=== PATIENT | female | born 1970 | race Caucasian/White ===

== ENCOUNTER 2024-10-28 08:12 | Outpatient (AMB) | payer BC, SELFPAY ==
[2024-10-28 08:21] VITALS: BP 141/102; PULSE 74; RESP 19; TEMP 36.6; O2SAT 99; BMI 23.8
--- NOTE | 2024-10-28 08:21 | ORTHONT_ITS ---
Vital signs 10/28/24 08:21 Height 1.6 m Height Method Stated Weight 61.008 kg Weight Measurement Method Standing Scale BMI 23.8 BP 141/102 H Blood Pressure Source Automatic Cuff Blood Pressure Location Left Upper Arm Position Sitting Respiration 19 Pulse 74 Pulse Source Monitor Temp 97.8 F Temp Source Temporal Artery Scan Pulse Oximetry (%) 99 Oxygen Delivery Method Room Air Med/Allergies Allergies & Medications Allergies No Known Allergies Allergy (Verified 10/28/24 08:23) Medication Reconciliation Unobtainable 10/28/24 [History Confirmed 10/28/24] Exam Exam Patient is in no acute distress and is cooperative with the examination today. Breathing is nonlabored. In no respiratory distress. Patient has no paraspinal tenderness. Spinal deformity cannot be appreciated. The gait of the patient is nonantalgic Bilateral extremities were evaluated and demonstrates sensation intact to light touch. Palpable pedal pulses are present. No significant edema is present. Bilateral knees were examined and the patient has full strength and range of motion.. The right hip was examined. Patient was able to flex to 90 degrees, adduct to 30 degrees, abduct to 40 degrees, internally rotate to 20 degrees, and externally rotate to 20 degrees. Patient has a negative logroll. Stinchfield is negative. The patient is nontender diffusely to touch. The left hip was examined. Patient was able to flex to 90 degrees, adduct to 30 degrees, abduct to 40 degrees, internally rotate to 20 degrees, and externally rotate to 20 degrees. Patient has a positive logroll and positive Stinchfield MRI of the left hip was reviewed by me today. This demonstrates a labral tear as well as arthritis. Left hip x-rays demonstrate severe arthritis with complete obliteration of this. Inferior joint space Assessment and Plan Problem List (1) Arthritis of left hip: Status: Acute Plan: Patient is a 54-year-old female with a left hip pain and left hip arthritis Based on x-rays. We thus discussed total hip with a reasonable option and she is tried home exercises, physical therapy, anti-inflammatories The nature and purpose of the total hip replacement, alternative method(s) of treatment, the material risks involved, and the possibility of complications were fully explained to the patient. The patient does NOT have any of the following contraindications to GLENIS: - Active infection of the hip joint, OR - Active systemic bacteremia, OR - Active skin infection or open wound at surgical site, OR - Neuropathic arthritis, OR - Severe, rapidly progressive neurological disease, OR - Severe medical condition that makes risks of the surgery outweigh the potential benefit The patient was told the most common risks and complications associated with a total hip replacement include, but are not limited to: blood clots in the leg, fatal pulmonary embolism, dislocation of the prosthesis, intraoperative and postoperative fractures of the femur or acetabulum, infection, failure of the prosthesis or grafting materials, complications from anesthesia, reactions to blood transfusions, postoperative leg length inequality, instability of the hip replacement, nerve damage or injury, vascular injury, delayed wound healing, infection, other injury or even . In addition, there are risks associated with anesthesia given during this operation. Also, the patient was told that af ter undergoing a total hip replacement there may still be persistent pain or disability. The patient was informed that the success of this operation in part depends upon the mechanical devices which are going to be implanted and that these devices can fail or malfunction, and may need to be repaired or replaced and there are no guarantees as to the longevity of this device or its parts and that it or its parts could fail prematurely. The patient was also notified that during the course of surgery, there may be a need to use bone graft from donors, and that any bone graft used will be carefully screened for communicable diseases, including AIDS, hepatitis, Anurag-Creutzfeldt, or other diseases, but despite the screening procedures, there is a small chance that they could contract one of these diseases. Finally, the patient was asked to follow completely and fully with all advice and recommended treatments, and that recovery and ultimate outcome are affected by their compliance with recommended treatment. We discussed the risks, benefits and treatment alternatives, and the patient is interested in proceeding with surgery. We will try to set this up as expeditiously as possible. 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 Level 4 ([id number]) [place] Intake Visit Data Collection New Patient or Established: New Patient (never been to [facility]) Reason for Visit:: OSTEOARTHRITIS LEFT HIP Seen by Clinical Staff ONLY (RN/MA): No Applications Systems Analyst Required: No PCP or OBGYN visit in last 3 months: Yes Hx Now: No Do You Feel Safe at Home: Yes Authorities Contacted: N/A Questionairres Past Medical History Past Medical History Have you ever been diagnosed with any of the following: Surgical History Total Knee Replacement: Yes (RIGHT 2012) Subjective Visit Visit for: new patient and hip (LEFT) Immunization / Flu Flu Vaccine in the Last 12 Months: No Flu Vaccine Exclusion Criteria: Refused by Patient History of Present Illness Chief complaint: Left hip pain Date of injury / onset of symptoms: 09/2022 Melissa is a pleasant 54-year-old female with a left greater than right hip pain. This pain has been ongoing for several years. It is primarily located in the groin but does radiate to the buttocks and down her leg. She was Told she has mkwi-ri-[id number] arthritis and this is based on MRI. Pain Pain level (0-10): 6 Pain duration: ON AND OFF Pain location: groin Pain quality: aching Pain timing: increases with activity Associated signs & symptoms: none Ambulatory data Ambulatory device: none Treatments Number of previous injections: 1 Improvement with previous injections: No Improvement with PT: No Improvement with NSAIDS: no Review of Systems Review of Systems: All systems negative unless otherwise noted in HPI.
== END 2024-10-28 08:43 | disposition home or self-care (01) ==
PROVIDERS: PCP Family Medicine; Referring Provider Family Medicine; Supervising Provider Orthopaedic Surgery Adult Reconstructive Orthopaedic Surgery; Visit Provider Orthopaedic Surgery Adult Reconstructive Orthopaedic Surgery
DX: M16.12 Unilateral primary osteoarthritis, left hip (principal); M25.552 Pain in left hip
CPT/HCPCS: 99204; G0463

== ENCOUNTER → 2024-10-28 | Outpatient (CLI) | payer BC, SELFPAY ==
--- NOTE | 2024-10-28 10:45 | XR_ITS ---
Examination: Bilateral hips, AP pelvis, 5 views Technique: AP, lateral views both hips, AP pelvis, 5 views Exam date and time: October 28, 2024 1058 hours INDICATIONS: Left hip pain 7 years. FINDINGS: Advanced left hip osteoarthritis Moderate right hip osteoarthritis No hip or pelvic fracture IMPRESSION: Advanced left hip osteoarthritis
--- NOTE | 2024-10-28 10:45 | XR_ITS ---
Examination: Right knee 4 views TECHNIQUE: AP oblique lateral axial right knee 4 views Exam date and time: October 28, 2024 1104 hours INDICATIONS: Right knee arthroplasty 2012 FINDINGS: Total right knee arthroplasty. Satisfactory alignment No fracture Moderate osteopenia IMPRESSION: Total right knee arthroplasty with satisfactory alignment
== END | disposition home or self-care (01) ==
PROVIDERS: Referring Provider Orthopaedic Surgery Adult Reconstructive Orthopaedic Surgery; Visit Provider Orthopaedic Surgery Adult Reconstructive Orthopaedic Surgery
DX: M16.0 Bilateral primary osteoarthritis of hip (principal); M17.11 Unilateral primary osteoarthritis, right knee
CPT/HCPCS: 73523; 73564

== ENCOUNTER 2024-11-04 11:22 | Outpatient (AMB) | payer BC, SELFPAY ==
--- NOTE | 2024-11-04 11:26 | ORTHONT_ITS ---
Vital signs 11/04/24 11:27 Height 1.6 m Height Method Stated Weight 62.851 kg Weight Measurement Method Standing Scale BMI 24.5 BP 117/78 Blood Pressure Source Automatic Cuff Blood Pressure Location Left Upper Arm Position Sitting Respiration 18 Pulse 61 Pulse Source Monitor Temp 97.2 F Temp Source Temporal Artery Scan Pulse Oximetry (%) 96 Oxygen Delivery Method Room Air Med/Allergies Allergies & Medications Allergies No Known Allergies Allergy (Verified 11/04/24 11:28) Medication Reconciliation Unobtainable 10/28/24 [History Confirmed 11/04/24] Exam Exam Patient is in no acute distress and is cooperative with the examination today. Breathing is nonlabored. In no respiratory distress. Patient has no paraspinal tenderness. Spinal deformity cannot be appreciated. The gait of the patient is nonantalgic Bilateral extremities were evaluated and demonstrates sensation intact to light touch. Palpable pedal pulses are present. No significant edema is present. Bilateral knees were examined and the patient has full strength and range of motion.. The right hip was examined. Patient was able to flex to 90 degrees, adduct to 30 degrees, abduct to 40 degrees, internally rotate to 20 degrees, and externally rotate to 20 degrees. Patient has a negative logroll. Stinchfield is negative. The patient is nontender diffusely to touch. The left hip was examined. Patient was able to flex to 90 degrees, adduct to 30 degrees, abduct to 40 degrees, internally rotate to 20 degrees, and externally rotate to 20 degrees. Patient has a positive logroll and positive Stinchfield MRI of the left hip was reviewed by me today. This demonstrates a labral tear as well as arthritis. Left hip x-rays demonstrate severe arthritis with complete obliteration of this. Assessment and Plan Problem List (1) Arthritis of left hip: Status: Acute Plan: Patient is a 54-year-old female with a left hip pain and left hip arthritis. She has significant left hip arthritis of the x-rays. The right hip has moderate arthritis. We Thus discussed the left total hip replacement is a reasonable option. She would like to do this in the anterior approach and we will use a standard incision not her bikini incision. The nature and purpose of the total hip replacement, alternative method(s) of treatment, the material risks involved, and the possibility of complications were fully explained to the patient. The patient does NOT have any of the following contraindications to GLENIS: - Active infection of the hip joint, OR - Active systemic bacteremia, OR - Active skin infection or open wound at surgical site, OR - Neuropathic arthritis, OR - Severe, rapidly progressive neurological disease, OR - Severe medical condition that makes risks of the surgery outweigh the potential benefit The patient was told the most common risks and complications associated with a total hip replacement include, but are not limited to: blood clots in the leg, fatal pulmonary embolism, dislocation of the prosthesis, intraoperative and postoperative fractures of the femur or acetabulum, infection, failure of the prosthesis or grafting materials, complications from anesthesia, reactions to b lood transfusions, postoperative leg length inequality, instability of the hip replacement, nerve damage or injury, vascular injury, delayed wound healing, infection, other injury or even . In addition, there are risks associated with anesthesia given during this operation. Also, the patient was told that after undergoing a total hip replacement there may still be persistent pain or disability. The patient was informed that the success of this operation in part depends upon the mechanical devices which are going to be implanted and that these devices can fail or malfunction, and may need to be repaired or replaced and there are no guarantees as to the longevity of this device or its parts and that it or its parts could fail prematurely. The patient was also notified that during the course of surgery, there may be a need to use bone graft from donors, and that any bone graft used will be carefully screened for communicable diseases, including AIDS, hepatitis, Anurag-Creutzfeldt, or other diseases, but despite the screening procedures, there is a small chance that they could contract one of these diseases. Finally, the patient was asked to follow completely and fully with all advice and recommended treatments, and that recovery and ultimate outcome are affected by their compliance with recommended treatment. We discussed the risks, benefits and treatment alternatives, and the patient is interested in proceeding with surgery. We will try to set this up as expeditiously as possible. Office Procedures GNS Level of Care Nursing/Assessment Patient Status: Established Patient Nursing Assessment/Reassesment: Medication Reconciliation, Update PMH in EMR and Vital Signs Coordination of Care: Complex Care and Chronic Disease 1-5, Education Complex Pt/Fam, Consent,records obtained, informed consent, Results/Orders obtained and Staff clarify orders Established Patient Charge Established Patient Point Assignment: 95 Established Patient Point Charge: EP Level 3 (80-115) [place] Intake Visit Data Collection New Patient or Established: Established Patient (seen at [facility] within 3 years) Reason for Visit:: FOLLOW UP Seen by Clinical Staff ONLY (RN/MA): No 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 PCP or OBGYN visit in last 3 months: Yes Hx Now: No Do You Feel Safe at Home: Yes Authorities Contacted: N/A Questionairres Past Medical History Past Medical History Have you ever been diagnosed with any of the following: Surgical History Total Knee Replacement: Yes (RIGHT 2013) Subjective Visit Visit for: follow up visit Immunization / Flu Flu Vaccine in the Last 12 Months: No Flu Vaccine Exclusion Criteria: No Exclusion Criteria History of Present Illness Chief complaint: Left hip pain Date of injury / onset of symptoms: 09/2022 Melissa is a pleasant 54-year-old female with a left greater than right hip pain. This pain has been ongoing for several years. It is primarily located in the groin but does radiate to the buttocks and down her leg. Her x-rays demonstrate significant left hip arthritis. She is reports that she is shorter on the left side currently. She would like to be lengthened on the left side Pain Pain level (0-10): 3 Pain duration: ALL DAY Pain location: inside (medial) and anterior Pain quality: aching Pain timing: increases with activity and stairs Associated signs & symptoms: none Ambulatory data Ambulatory device: none Treatments Number of previous injections: 1 Improvement with previous injections: No Improvement with PT: No Improvement with NSAIDS: no Review of Systems Review of Systems: All systems negative unless otherwise noted in HPI.
[2024-11-04 11:27] VITALS: BP 117/78; PULSE 61; RESP 18; TEMP 36.2; O2SAT 96; BMI 24.5
== END 2024-11-04 12:55 | disposition home or self-care (01) ==
LOC: HODSRG 11:22
PROVIDERS: PCP Family Medicine; Referring Provider Family Medicine; Supervising Provider Orthopaedic Surgery Adult Reconstructive Orthopaedic Surgery; Visit Provider Orthopaedic Surgery Adult Reconstructive Orthopaedic Surgery
DX: M16.12 Unilateral primary osteoarthritis, left hip (principal); M25.552 Pain in left hip; Z96.651 Presence of right artificial knee joint
CPT/HCPCS: 99213; G0463

== ENCOUNTER → 2024-11-17 | Outpatient (CLI) | payer BC, SELFPAY ==
--- NOTE | 2024-11-17 14:00 | XR_ITS ---
Examination: CT bilateral lower extremities, without contrast. 2-D sagittal reconstructions. 2-D coronal reconstructions. 3-D reconstructions. Date and time of exam:November 17, 2024 1358 hours INDICATIONS: Left hip pain beginning 2 years ago, diagnosis unilateral primary osteoarthritis CTDI: vol (mGy):9.11 DLP: (mGycm):625 Technique: Multiple 1.25 mm axial sections of the bilateral lower extremities without intravenous contrast have been obtained. 2-D sagittal and coronal reconstructions have been obtained. 3-D reconstructions have been obtained. Low dose protocols were performed. One or more of the following dose reduction techniques were used; automated exposure control, adjustment of the mA and/or KV according to patient size, use of iterative reconstruction technique. Findings: Moderate osteopenia Advanced narrowing [id number] left hip joint with osteophyte formation Moderate to advanced narrowing right hip joint Total right knee arthroplasty with satisfactory alignment Mild narrowing medial and patellofemoral joints IMPRESSION: Advanced osteoarthritis left hip
== END | disposition home or self-care (01) ==
PROVIDERS: Referring Provider Orthopaedic Surgery Adult Reconstructive Orthopaedic Surgery; Visit Provider Orthopaedic Surgery Adult Reconstructive Orthopaedic Surgery
DX: M16.12 Unilateral primary osteoarthritis, left hip (principal)
CPT/HCPCS: 72192; 73700

== ENCOUNTER 2024-11-23 13:14 | Outpatient (AMB) | payer BC, SELFPAY ==
[2024-11-23 13:37] VITALS: BP 134/86; PULSE 7; RESP 18; TEMP 36.5; O2SAT 95; BMI 24.5
--- NOTE | 2024-11-23 13:37 | PD.ORTHCLVIS ---
Vital signs 11/23/24 13:37 Height 1.6 m Height Method Stated Weight 62.794 kg Weight Measurement Method Standing Scale BMI 24.5 BP 134/86 H Blood Pressure Source Automatic Cuff Blood Pressure Location Left Upper Arm Position Sitting Respiration 18 Pulse 7 L Pulse Source Monitor Temp 97.7 F Temp Source Temporal Artery Scan Pulse Oximetry (%) 95 Oxygen Delivery Method Room Air Med/Allergies Allergies & Medications Allergies No Known Allergies Allergy (Verified 11/23/24 13:38) Medication Reconciliation Unobtainable 10/28/24 [History Confirmed 11/23/24] Exam Exam Patient is in no acute distress and is cooperative with the examination today. Breathing is nonlabored. In no respiratory distress. Patient has no paraspinal tenderness. Spinal deformity cannot be appreciated. The gait of the patient is nonantalgic Bilateral extremities were evaluated and demonstrates sensation intact to light touch. Palpable pedal pulses are present. No significant edema is present. Bilateral knees were examined and the patient has full strength and range of motion.. The right hip was examined. Patient was able to flex to 90 degrees, adduct to 30 degrees, abduct to 40 degrees, internally rotate to 20 degrees, and externally rotate to 20 degrees. Patient has a negative logroll. Stinchfield is negative. The patient is nontender diffusely to touch. The left hip was examined. Patient was able to flex to 90 degrees, adduct to 30 degrees, abduct to 40 degrees, internally rotate to 20 degrees, and externally rotate to 20 degrees. Patient has a positive logroll and positive Stinchfield MRI of the left hip was reviewed by me today. This demonstrates a labral tear as well as arthritis. Left hip x-rays demonstrate severe arthritis with complete obliteration of the superior joint space. Assessment and Plan Problem List (1) Arthritis of left hip: Status: Acute Plan: Patient is a 54-year-old female with a left hip pain and left hip arthritis. She has significant left hip arthritis of the x-rays. The right hip has moderate arthritis. We Thus discussed the left total hip replacement is a reasonable option. She would like to do this in the anterior approach and we will use a standard incision not her bikini incision. She feels like she is 2 cm shorter on the left. The nature and purpose of the total hip replacement, alternative method(s) of treatment, the material risks involved, and the possibility of complications were fully explained to the patient. The patient does NOT have any of the following contraindications to GLENIS: - Active infection of the hip joint, OR - Active systemic bacteremia, OR - Active skin infection or open wound at surgical site, OR - Neuropathic arthritis, OR - Severe, rapidly progressive neurological disease, OR - Severe medical condition that makes risks of the surgery outweigh the potential benefit The patient was told the most common risks and complications associated with a total hip replacement include, but are not limited to: blood clots in the leg, fatal pulmonary embolism, dislocation of the prosthesis, intraoperative and postoperative fractures of the femur or acetabulum, infection, failure of the prosthesis or grafting materials, complications from anesthesia, reactions to blood transfusions, postoperative leg length inequality, instability of the hip replacement, nerve damage or injury, vascular injury, delayed wound healing, infection, other injury or even . In addition, there are risks associated with anesthesia given during this operation. Also, the patient was told that after undergoing a total hip replacement there may still be persistent pain or disability. The patient was informed that the success of this operation in part depends upon the mechanical devices which are going to be implanted and that these devices can fail or malfunction, and may need to be repaired or replaced and there are no guarantees as to the longevity of this device or its parts and that it or its parts could fail prematurely. The patient was also notified that during the course of surgery, there may be a need to use bone graft from donors, and that any bone graft used will be carefully screened for communicable diseases, including AIDS, hepatitis, Anurag-Creutzfeldt, or other diseases, but despite the screening procedures, there is a small chance that they could contract one of these diseases. Finally, the patient was asked to follow completely and fully with all advice and recommended treatments, and that recovery and ultimate outcome are affected by their compliance with recommended treatment. We discussed the risks, benefits and treatment alternatives, and the patient is interested in proceeding with surgery. We will try to set this up as expeditiously as possible. Office Procedures GNS Level of Care Nursing/Assessment Patient Status: Established Patient Nursing Assessment/Reassesment: Medication Reconciliation, Update PMH in EMR and Vital Signs Coordination of Care: Complex Care and Chronic Disease 1-5, Education Complex Pt/Fam, Consent,records obtained, informed consent, Results/Orders obtained and Staff clarify orders Established Patient Charge Established Patient Point Assignment: 95 Established Patient Point Charge: EP Level 3 (80-115) [place] Intake Visit Data Collection New Patient or Established: Established Patient (seen at [facility] within 3 years) Reason for Visit:: PRE OP L HIP TKA Seen by Clinical Staff ONLY (RN/MA): No 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 PCP or OBGYN visit in last 3 months: Yes Hx Now: No Do You Feel Safe at Home: Yes Authorities Contacted: N/A Questionairres Past Medical History Past Medical History Have you ever been diagnosed with any of the following: Respiratory Problems Smoking: No Smoking Exposure: No Surgical History Total Knee Replacement: Yes (RIGHT 2012) Subjective Visit Visit for: follow up visit (PRE OP) and hip Immunization / Flu Flu Vaccine in the Last 12 Months: No Flu Vaccine Exclusion Criteria: No Exclusion Criteria History of Present Illness Chief complaint: Left hip pain Date of injury / onset of symptoms: 09/2022 Melissa is a pleasant 54-year-old female with a left greater than right hip pain. This pain has been ongoing for several years. It is primarily located in the groin but does radiate to the buttocks and down her leg. Her x-rays demonstrate significant left hip arthritis. She is reports that she is shorter on the left side currently. She would like to be lengthened on the left side Pain Pain level (0-10): 6 Pain duration: ON AND OFF Pain location: groin, inside (medial), outside (lateral) and anterior Pain quality: aching Pain timing: increases with activity and stairs Associated signs & symptoms: none Ambulatory data Ambulatory device: none Treatments Number of previous injections: 1 Improvement with previous injections: No Improvement with PT: No Improvement with NSAIDS: no Review of Systems Review of Systems: All systems negative unless otherwise noted in HPI.
== END 2024-11-23 13:49 | disposition home or self-care (01) ==
LOC: HODSRG 13:14
PROVIDERS: Supervising Provider Orthopaedic Surgery Adult Reconstructive Orthopaedic Surgery; Visit Provider Orthopaedic Surgery Adult Reconstructive Orthopaedic Surgery
DX: M16.12 Unilateral primary osteoarthritis, left hip (principal)
CPT/HCPCS: 99213; G0463

== ENCOUNTER 2024-12-08 05:30 | Day surgery (SDC) | payer BC, SELFPAY ==
[2024-12-06 09:07] VITALS: BMI 24.0
[2024-12-06 10:26] LABS: Basophils # (Auto) 0.1 Thou/mm3 (0.0-0.2); Basophils % (Auto) 1 % (0-2.5); Eosinophils # (Auto) 0.3 Thou/mm3 (0.0-0.5); Eosinophils % (Auto) 4 % (0-10); Hematocrit 48.1 % (36.0-46.0); Hemoglobin 15.7 g/dL (12.0-16.0); Immature Granulocytes % (Auto) 1 % (0-0); Immature Granulocytes Auto 0.04 Thou/mm3 (0.00-0.00); Lymphocytes # (Auto) 2.3 Thou/mm3 (1.0-4.8); Lymphocytes % (Auto) 33 % (10-50); Mean Corpuscular HGB Conc 32.6 g/dl (31.0-37.0); Mean Corpuscular Hemoglobin 27.7 pg (25.0-35.0); Mean Corpuscular Volume 85 fL (80-100); Monocytes # (Auto) 0.6 Thou/mm3 (0.0-0.8); Monocytes % (Auto) 8 % (0-12); Neutrophils # (Auto) 3.8 Thou/mm3 (1.8-7.7); Neutrophils % (Auto) 54 % (37-80); Nucleated Red Blood Cell % 0 /100 WBC (0); Platelet Count 301 Thou/mm3 (140-440); RDW Standard Deviation 41.5 fL (36.4-46.3); Red Blood Count 5.66 Miln/mm3 (4.00-5.20)
[2024-12-06 10:36] LABS: Partial Thromboplastin Time 24.8 Seconds (22.0-36.0); Prothrombin Time 10.9 Seconds (9.0-12.2)
[2024-12-06 10:45] LABS: Anion Gap 8 (7-16); BUN/Creatinine Ratio 20 Ratio (12-20); Blood Urea Nitrogen 20 mg/dL (9-23); Calcium 9.8 mg/dL (8.3-10.6); Carbon Dioxide 28.4 mMol/L (20.0-31.0); Chloride 104 mMol/L (98-107); Glucose 97 mg/dL (74-106); Osmolality,Calculated 282 (275-295); Potassium 4.6 mMol/L (3.4-5.1); Sodium 140 mMol/L (136-145); eGFR > 60 See Note
[2024-12-08] VITALS (14 sets, daily range): BP systolic 97–119; BP diastolic 62–81; PULSE 61–85; RESP 10–20; TEMP 36.3–37.2; O2SAT 96–100; BMI 23.2
[2024-12-08] MEDS: RINGERS LACTATED 1000 ML 1,000 ML 20 ML IV (06:50)
[2024-12-08] MEDS: ACETAMINOPHEN 325 MG TABLET 650 MG PO (06:51)
[2024-12-08] MEDS: MELOXICAM 7.5 MG TABLET PO (06:51)
[2024-12-08] MEDS: PREGABALIN 75 MG CAPSULE PO (06:51)
--- NOTE | 2024-12-08 07:00 | XR_ITS ---
Examination: Left hip 5 views Fluoroscopy Exam date and time: December 08, 2024 0911 hours INDICATIONS: Total left hip arthroplasty today, advanced left hip osteoarthritis on CT left hip November 17, 2024 TECHNIQUE AND FINDINGS: 5 spot fluoroscopic AP lateral left hip films Fluoroscopy 31 seconds radiation dose 1.67 milligray Total left hip arthroplasty. Satisfactory alignment IMPRESSION: Total left hip arthroplasty, satisfactory alignment
--- NOTE | 2024-12-08 07:23 | CHAP ---
Visited briefly with patient giving words of encouragement and prayer.
--- NOTE | 2024-12-08 10:10 | ESOP_ITS ---
Date of Procedure 12/08/24 Pre Op Diagnosis left hip osteoarthritis Post Op Diagnosis left hip osteoarthritis Procedure left total hip replacement adelso Findings full thickness cartilage loss and osteophytes Procedure Description Indications: The patient is a 54 y.o. year-old male with a long standing history of left hip pain. After considering the patient's condition and the impact of their hip on the patient's quality of life and activities of daily living, total hip replacement was offered as a reasonable option. Prior to the surgery I discussed the nature of the total hip replacement surgery including alternatives to surgery and the purpose of, and indications for proceeding with surgery. I discussed that this is an elective operation and that the patient should carefully weigh their options before proceeding with surgery. I discussed that this surgery is a shared decision between the patient and the surgeon. Risks and benefits and alternatives of the procedure have been explained to the patient and their family. Anesthesia complications and risks include but are not limited to stroke, heart attack, and . The surgical risks include but are not limited to infection, instability/dislocation, bleeding, nerve and blood vessel injury, deep vein thrombosis, pulmonary embolus, stiffness, pain, scar, need for reoperation, leg length discrepancy, thigh numbness, weakness, and mechanical failure of the implant including loosening, metal complications, metal allergy, wear or breakage. I discussed the expected recovery from surgery and the importance of compliance with all our pre and post-operative recommendations in order to maximize the recovery. The patient understands the risks of loss of life, loss of limb and, loss of function and wishes to proceed. A signed and witnessed consent was obtained and placed in the chart. We also discussed in detail that she is significantly longer in the right due to the prior tibial fracture and total knee replacement. We discussed that we lengthen her too much on the left, that we are likely to throw off the biomechanics of her hip. She understands this. Procedure in Detail: The patient was identified in the preoperative area. A signed and witness consent was confirmed in the chart. The surgery team confirmed with the patient the operative plan and surgical site. The surgical site was confirmed by the patient and marked by the surgical team. The patient was given the opportunity to ask any further questions and all questions were answered. The patient was brought to the operating room where anesthesia was induced by the anesthesia team without incident. The patient was placed in the supine position on a HANA table with the feet well padded in the boots. All extremities were padded to ensure adequate protection. A timeout was performed prior to the procedure which verified the correct patient, positioning, operation to be performed, operative site, antibiotics, allergies, imaging, and any other concerns. All parties were in agreement. The operative site was cleaned and draped in the usual sterile fashion. A final timeout was performed with all parties in agreement. We first started by making a small incision superior to the ASIS ensuring to be on the table of the pelvis. We ensured that we were 2 fingerbreadths above the ASIS and hip. We placed 3 pins through a small incision and ensured that we were in the table. The pins were driven approximately 3 to 4 cm. The arrays were then placed on the contralateral side to face the camera. A anterior approach to the hip was utilized for the operative side. A 10cm skin incision was made just distal and lateral to the ASIS. This was taken down through skin and subcutaneous tissue using a 10 blade. Bleeding was controlled using electrocautery. The fascia was identified and split in line with the its fibers. The plane medial to the TFL was developed. Next the lateral femoral circumflex vessel was cauterized. The capsule over the femoral neck was exposed and a T shaped capsulotomy performed. The two leaflets were tagged. A femoral neck osteotomy was then performed and the head removed using the marker tool to aid in determining the appropriate neck length. The acetabular bone was then mapped.Acetabular retractors were placed and the cupped was reamed using the robot for alignment. We reamed line to line and good bleeding bone was obtained. We then placed a press fit triathlon cup getting proper version and inclination off of c-arm imaging. There was good press fit. The anterior rim of the cup well covered. One placed and confirmed below the rim of the inner cup followed by the liner which was confirmed fully seated circumferentially. Half of the joint injection was placed inferior and anterior to the acetabulum. Peripheral osteophytes were removed. Next the femur was exposed using the table and femoral elevator for assistance. For this case a capsular release was performed leaving the piriformis and rest of short external rotators intact. The canal was broached up until we obtained excellent axial and rotational stability and the hip was reduced. Fluoro was used to circuit judge limb length, offset, and stem size as well as the calibrations from the robot. Stability was assessed by externally rotating the foot to 90 deg and then extending the hip 30 degrees. There was no subluxation of the femoral head in that position. The hip was dislocated. The stem position and depth was adjusted as needed per the fluoro shot. The neck was planed to the level of the broach using the calcar planar and then the stem removed. The canal was irrigated and the calcar inspected. There was no evidence of fracture and the bone bed was in good condition. The real stem was inserted and then impacted to the prior level of the broach with good solid fit. The calcar was again inspected and in good condition. The real head was impacted onto a clean taper and the hip reduced again. C-arm confirmed reduction and no evidence of complication. The wound was irrigated with dilute betadine followed by saline lavage. Hemostasis was obtained and noted through all layers. The remained of the joint cocktail was injected avoiding posterior by the nerve. We ensured that all the pins were removed from the pelvis including any checkpoints. The capsule was repaired with 0-vlock. The fascia closed with #2 Quill. The subcutaneous tissues closed with 2-0 vlock followed by 3-0 monocryl, dermabond, and prineo The drapes were then taken down and the patient moved to the [facility]. Leg lengths were confirmed to be appropriate and the patient's lower extremities were warm and well perfused with brisk capillary refill and palpable pulses. The patient was then awoken, transferred to the [facility] and taken to the PACU in stable condition. They tolerated the procedure well. The patient's family/caregiviers were made aware of their condition. Final sponge and needle counts were correct x2. Implants: Mason cup size 50, 1 screws 36+5 ceramic head, insignia size 3 standard offset Anesthesia spinal Implants mason Pathology / specimen None Pathology comment: none Estimated Blood Loss 150 Condition Stable Disposition same day Surgeon Dawson Juarez MD Surgical Staff Operation Date: 12/08/24 07:30 Case Staff Anesthesiologist: Emigdio Morales RN First Assistant: Bushra Pang
--- NOTE | 2024-12-08 10:12 | XR_ITS ---
Examination:Left hip AP, lateral, AP pelvis 3 views Technique: Hip AP lateral, AP pelvis, 3 views Exam date and time:December 08, 2024 1126 hours INDICATIONS: Postop left hip arthroplasty today FINDINGS: Moderate osteopenia Total left hip arthroplasty. Satisfactory alignment Moderate to advanced narrowing right hip joint IMPRESSION: Total left hip arthroplasty with satisfactory alignment.
--- NOTE | 2024-12-08 10:32 | SUR.PHASEI ---
1032: Pt. AAOx4, vitals stable, breathing unlabored, no complaint of pain or nausea, dressing to right and left hip CDI, no active bleed noted, pt. able to move bilateral legs, cap refill to bilateral feet less than 3 seconds, bilateral dorsalis pedis pulses strong and regular, report received from MD Morales and Jeffery FLOWERS.
[2024-12-08] MEDS: ONDANSETRON INJ 2 MG/ML INJ 2 ML 4 MG IV (10:51)
--- NOTE | 2024-12-08 11:36 | SUR.PHASEII ---
Pt. awake, alert, able to follow commands, vitals stable, breathing unlabored, no complaint of pain or nausea, dressing to right and left hip clean, dry, and intact, circulation to bilateral toes within normal limits, bilateral dorsalis pedis pulses present and equal, report received from Dara FLOWESR
--- NOTE | 2024-12-08 12:13 | SUR.PHASEII ---
report to Dara FLOWERS
--- NOTE | 2024-12-08 14:00 | SUR.PHASEII ---
1400: Pt. AAOx4, vitals stable, breathing unlabored, no complaint of pain or nausea, dressing to left and right hip CDI, no active bleed noted, bilateral dorsalis pedis pulses strong and regular, cap refill to bilateral feet less than 3 seconds, pt. tolerated physical therapy well, pt. tolerated sips of water well, pt. ambulated to wheelchair with steady gait and no assist, no complications. Gave discharge instructions to the pt. and her ride, both verbalized understanding and had no further questions. Pt. left with all personal belongings.
== END 2024-12-08 14:00 | disposition home or self-care (01) ==
PROVIDERS: PCP Family Medicine; Referring Provider Orthopaedic Surgery Adult Reconstructive Orthopaedic Surgery; Visit Provider Orthopaedic Surgery Adult Reconstructive Orthopaedic Surgery
PROC: (CPT 27130; principal; 2024-12-08 07:30)
DX: M16.12 Unilateral primary osteoarthritis, left hip (principal)
CPT/HCPCS: 27130; 20985; 36415; 73502; 76000; 80048; 85025; 85610; 85730; 97162; A4217; A4649; C1713; C1776; J0690; J2250; J2405; J2704; J3010; J3490; J7030; J7120; J7999; A9270

== ENCOUNTER 2024-12-23 14:04 | Outpatient (AMB) | payer BC, SELFPAY ==
--- NOTE | 2024-12-23 14:46 | PD.ORTHCLVIS ---
Vital signs 12/23/24 14:47 Height 1.63 m Height Method Stated Weight 62.227 kg Weight Measurement Method Standing Scale BMI 23.4 BP 113/65 Blood Pressure Source Automatic Cuff Blood Pressure Location Left Upper Arm Position Sitting Respiration 18 Pulse 82 Pulse Source Monitor Temp 97.6 F Temp Source Temporal Artery Scan Pulse Oximetry (%) 97 Oxygen Delivery Method Room Air Med/Allergies Allergies & Medications Allergies No Known Allergies Allergy (Verified 12/23/24 14:48) Medication Reconciliation estradiol 0.0375 mg/24 hr semiweekly transdermal patch 0.0375 mg topical .2XWEEK 12/06/24 [History Confirmed 12/23/24] pregestorone 100 mg PO QDAY 12/06/24 [History Confirmed 12/23/24] testosterone cypionate 200 mg/mL intramuscular syringe 160 mg subcut .WEEKLY 12/06/24 [History Confirmed 12/23/24] acetaminophen 500 mg tablet (Acetaminophen Extra Strength) 1,000 mg (2 x 500 mg) PO Q6H PRN pain #90 tabs 12/08/24 [Rx Confirmed 12/23/24] aspirin 81 mg tablet,delayed release 81 mg PO BID #60 tabs 12/08/24 [Rx Confirmed 12/23/24] doxycycline hyclate 100 mg tablet 100 mg PO BID #14 tabs 12/08/24 [Rx Confirmed 12/23/24] gabapentin 300 mg capsule 300 mg PO .qhs #30 caps 12/08/24 [Rx Confirmed 12/23/24] oxycodone 5 mg tablet 5 mg PO Q6H PRN pain #28 tabs 12/08/24 [Rx Confirmed 12/23/24] sennosides 8.6 mg-docusate sodium 50 mg tablet (Senna-S) 1 tab-cap PO QDAY #30 tabs 12/08/24 [Rx Confirmed 12/23/24] Exam Exam Patient is in no acute distress and is cooperative with the examination today. Breathing is nonlabored. In no respiratory distress. Patient has no paraspinal tenderness. Spinal deformity cannot be appreciated. The gait of the patient is nonantalgic Bilateral extremities were evaluated and demonstrates sensation intact to light touch. Palpable pedal pulses are present. No significant edema is present. Bilateral knees were examined and the patient has full strength and range of motion.. The right hip was examined. Patient was able to flex to 90 degrees, adduct to 30 degrees, abduct to 40 degrees, internally rotate to 20 degrees, and externally rotate to 20 degrees. Patient has a negative logroll. Stinchfield is negative. The patient is nontender diffusely to touch. Left hip incision is clean dry intact. Leg lengths are equal Assessment and Plan Problem List (1) Arthritis of left hip: Status: Acute Plan: Patient is a 54-year-old female with a left hip pain and left hip arthritis. She is doing well status post left totalHip replacement. We will see her in 6 weeks for routine follow-up Office Procedures GNS Level of Care Nursing/Assessment Patient Status: Established Patient Nursing Assessment/Reassesment: Medication Reconciliation, Update PMH in EMR and Vital Signs Coordination of Care: Complex Care and Chronic Disease 1-5, Education Complex Pt/Fam, Consent,records obtained, informed consent, Results/Orders obtained and Staff clarify orders Established Patient Charge Established Patient Point Assignment: 95 Established Patient Point Charge: EP Level 3 (80-115) MA Intake Visit Data Collection New Patient or Established: Established Patient (seen at [facility] within 3 years) Reason for Visit:: LEFT HIP REPLACEMENT F/U Seen by Clinical Staff ONLY (RN/MA): No 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 PCP or OBGYN visit in last 3 months: Yes Hx Now: No Do You Feel Safe at Home: Yes Authorities Contacted: N/A Questionairres Past Medical History Past Medical History Have you ever been diagnosed with any of the following: Neurological Problems Seizures: No Cardiology Problems Congestive Heart Failure: No Respiratory Problems Chronic Obstructive Pulmonary Disease (COPD): No Smoking: No Smoking Exposure: No Genital/Urinary Problems Renal Disease: No Reproductive Problems Previous Pregnancies: Yes Musculoskeletal Problems Arthritis: Yes (LEFT HIP) Fractures: Yes (KNEE) Endocrine Problems Diabetes Mellitus Type 1: No Diabetes Mellitus Type 2: No Other Problems Falls: No Blood Transfusions: No Anesthesia Reactions: No Chicken Pox: Yes Measles: No Mumps: No Cancer: No Surgical History Total Hip Replacement: Yes (2024) Total Knee Replacement: Yes (RIGHT 2012) Hysterectomy: Yes Subjective Visit Visit for: follow up visit and hip Immunization / Flu Flu Vaccine in the Last 12 Months: No Flu Vaccine Exclusion Criteria: No Exclusion Criteria History of Present Illness Chief complaint: Left hip pain Date of injury / onset of symptoms: 09/2022 Melissa is a pleasant 54-year-old female with a left greater than right hip pain. She is doing well status post left total hip replacement anterior approach. Pain Pain level (0-10): 1 Pain duration: ON AND OFF Pain location: outside (lateral) Pain quality: aching Pain timing: increases with activity and stairs Associated signs & symptoms: none Ambulatory data Ambulatory device: cane Treatments Number of previous injections: 1 Improvement with previous injections: No Improvement with PT: No Improvement with NSAIDS: no Review of Systems Review of Systems: All systems negative unless otherwise noted in HPI.
[2024-12-23 14:47] VITALS: BP 113/65; PULSE 82; RESP 18; TEMP 36.4; O2SAT 97; BMI 23.4
== END 2024-12-23 14:59 | disposition home or self-care (01) ==
PROVIDERS: PCP Family Medicine; Referring Provider Family Medicine; Supervising Provider Orthopaedic Surgery Adult Reconstructive Orthopaedic Surgery; Visit Provider Orthopaedic Surgery Adult Reconstructive Orthopaedic Surgery
DX: M16.12 Unilateral primary osteoarthritis, left hip (principal); M25.552 Pain in left hip; Z96.642 Presence of left artificial hip joint
CPT/HCPCS: 99213; G0463

== ENCOUNTER 2025-01-11 10:30 | Outpatient (RCR) | payer BC, SELFPAY ==
--- NOTE | 2025-01-05 11:56 | PTNOTE_ITS ---
PT OP Initial Eval Patient Information Outpatient Physical Therapy Treatment Date: 01/05/25 Visit Reasons: S/P L HIP SURGERY Medical Diagnosis: Left Hip OA Treatment Dx #1: Left Hip Mobility Deficits Treatment Dx #2: Abnormal Gait Start of Care: 01/05/25 Date of Onset: 12/08/24 Smoking Status Smoking Status: Never smoker Initial Assessment Subjective: Pt is a 54 y/o female s/p left hip replacement 12/08/24 due to OA. Pt still has pain (6/10) with activities. Pt has limitation with walking, chores, self care, cooking, work duties, and performing recreational activities. Pt is active and will like to get back to taking care of her animals, working out, and hiking. Pt further mentioned 23 years ago her right knee was replaced which is ~ 2 mm longer. Objective: Left Hip AROM Flexion: 100 deg Abduction: 45 deg Extension: 15 deg ER and IR: WFL Left Hip MMTs: grossly 3/5 Gait Observation: antalgic gait with decrease stride length Leg Length Discrepancy L: 90 cm R: 91 cm Assessment: Pt demonstrate left hip mobility and strength deficits s/p hip replacement leading to difficulty with ADLs. Pt will benefit from physical therapy to increase ROM, strength, and work on ambulation. 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 1) Increase left hip AROM WNL in 8 wks to be able to perform chores 2) Decrease hip pain to 2/10 in 8 wks to be able to stand more than 30 mins 3) Increase left hip MMTs grossly to 4/5 in 8 wks to be able to return back to work 4) Increase left hip SLS to 15 sec in 8 wks to be able to perform self care activities 5) Indep with HEP Treatment Plan 1) Manual Therapy 2) Therapeutic Activities 3) Therapeutic Exercises 4) Modalities (ice, heat) 5) Balance Training 6) Gait Training Frequency and Duration: 2 x wk for 8 wks Certification Dates: 01/05/25 to 04/06/25 Procedure Charges OP PT Eval Mod Complex 30 minutes: Yes
--- NOTE | 2025-01-11 11:06 | PTNOTE_ITS ---
PT Outpatient Daily Note OP Daily Note Outpatient Physical Therapy Treatment Date: 01/11/25 Visit Reasons: S/P L HIP SURGERY Subjective: Pt's hip is really sore. Pt mentioned she waddles at home without her cane. Objective: Please see flow chart for list of ther ex performed Assessment: practice WB on left hip to decrease antalgic gait. 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
== END 2025-01-12 23:59 | disposition home or self-care (01) ==
LOC: CPTX 10:30
PROVIDERS: PCP Orthopaedic Surgery Adult Reconstructive Orthopaedic Surgery; Referring Provider Orthopaedic Surgery Adult Reconstructive Orthopaedic Surgery; Visit Provider Orthopaedic Surgery Adult Reconstructive Orthopaedic Surgery
DX: M25.552 Pain in left hip (principal); R26.2 Difficulty in walking, not elsewhere classified; Z96.642 Presence of left artificial hip joint
CPT/HCPCS: 97110; 97162

== ENCOUNTER → 2025-02-01 | Outpatient (CLI) | payer BC, SELFPAY ==
--- NOTE | 2025-02-01 | XR_ITS ---
Examination:Left hip AP, lateral, AP pelvis 3 views Technique: Hip AP lateral, AP pelvis, 3 views Exam date and time:February 01, 2025 1229 hours INDICATIONS: Postop left hip arthroplasty March 10, 2025 FINDINGS: Comparison December 08, 2024 Total left arthroplasty. Satisfactory alignment. No fractures. No loosening of the prosthetic components Moderate narrowing right hip joint IMPRESSION: Total left hip arthroplasty with satisfactory alignment.
== END | disposition home or self-care (01) ==
LOC: CDIM 11:41
PROVIDERS: PCP Psychiatry & Neurology Neurology; Referring Provider Orthopaedic Surgery Adult Reconstructive Orthopaedic Surgery; Visit Provider Orthopaedic Surgery Adult Reconstructive Orthopaedic Surgery
DX: Z96.642 Presence of left artificial hip joint (principal)
CPT/HCPCS: 73502

== ENCOUNTER 2025-02-03 08:01 | Outpatient (AMB) | payer BC, SELFPAY ==
[2025-02-03 08:14] VITALS: BP 130/85; PULSE 70; RESP 18; TEMP 36.6; O2SAT 98; BMI 22.4
--- NOTE | 2025-02-03 08:14 | PD.ORTHCLVIS ---
Vital signs 02/03/25 08:14 Height 1.63 m Height Method Stated Weight 59.421 kg Weight Measurement Method Standing Scale BMI 22.4 BP 130/85 H Blood Pressure Source Automatic Cuff Blood Pressure Location Right Upper Arm Position Sitting Respiration 18 Pulse 70 Pulse Source Monitor Temp 97.8 F Temp Source Temporal Artery Scan Pulse Oximetry (%) 98 Oxygen Delivery Method Room Air Med/Allergies Allergies & Medications Allergies No Known Allergies Allergy (Verified 02/03/25 08:15) Medication Reconciliation estradiol 0.0375 mg/24 hr semiweekly transdermal patch 0.0375 mg topical .2XWEEK 12/06/24 [History Confirmed 02/03/25] pregestorone 100 mg PO QDAY 12/06/24 [History Confirmed 02/03/25] testosterone cypionate 200 mg/mL intramuscular syringe 160 mg subcut .WEEKLY 12/06/24 [History Confirmed 02/03/25] acetaminophen 500 mg tablet (Acetaminophen Extra Strength) 1,000 mg (2 x 500 mg) PO Q6H PRN pain #90 tabs 12/08/24 [Rx Confirmed 02/03/25] aspirin 81 mg tablet,delayed release 81 mg PO BID #60 tabs 12/08/24 [Rx Confirmed 02/03/25] doxycycline hyclate 100 mg tablet 100 mg PO BID #14 tabs 12/08/24 [Rx Confirmed 02/03/25] gabapentin 300 mg capsule 300 mg PO .qhs #30 caps 12/08/24 [Rx Confirmed 02/03/25] oxycodone 5 mg tablet 5 mg PO Q6H PRN pain #28 tabs 12/08/24 [Rx Confirmed 02/03/25] sennosides 8.6 mg-docusate sodium 50 mg tablet (Senna-S) 1 tab-cap PO QDAY #30 tabs 12/08/24 [Rx Confirmed 02/03/25] hydrocodone 5 mg-acetaminophen 325 mg tablet 1 tab PO Q6H PRN pain #28 tabs 01/25/25 [Rx Confirmed 02/03/25] Exam Exam Patient is in no acute distress and is cooperative with the examination today. Breathing is nonlabored. In no respiratory distress. Patient has no paraspinal tenderness. Spinal deformity cannot be appreciated. The gait of the patient is nonantalgic Bilateral extremities were evaluated and demonstrates sensation intact to light touch. Palpable pedal pulses are present. No significant edema is present. Bilateral knees were examined and the patient has full strength and range of motion.. The right hip was examined. Patient was able to flex to 90 degrees, adduct to 30 degrees, abduct to 40 degrees, internally rotate to 20 degrees, and externally rotate to 20 degrees. Patient has a negative logroll. Stinchfield is negative. The patient is nontender diffusely to touch. Left hip incision is clean dry intact. Leg lengths are equal Left hip x-rays demonstrates a cementless total hip replacement in good alignment and position Assessment and Plan Problem List (1) Arthritis of left hip: Status: Acute Plan: Patient is a 54-year-old female with a left hip pain and left hip arthritis. She is doing well status post left totalHip replacement. We will see her in 4 months for routine follow-up. She is very happy with her progress. SHe should continue physical therapy Office Procedures GNS Level of Care Nursing/Assessment Patient Status: Established Patient Nursing Assessment/Reassesment: Medication Reconciliation, Update PMH in EMR and Vital Signs Coordination of Care: Complex Care and Chronic Disease 1-5, Consent,records obtained, informed consent, Education Simp Pt/Fam, Results/Orders obtained and Staff clarify orders Established Patient Charge Established Patient Point Assignment: 90 Established Patient Point Charge: EP Level 3 (80-115) MA Intake Visit Data Collection New Patient or Established: Established Patient (seen at [facility] within 3 years) Reason for Visit:: FU LT HIP REPLACEMENT Seen by Clinical Staff ONLY (RN/MA): No [employer] Floorperson Required: No PCP or OBGYN visit in last 3 months: Yes Hx Now: No Do You Feel Safe at Home: Yes Authorities Contacted: N/A Questionairres Past Medical History Past Medical History Have you ever been diagnosed with any of the following: Neurological Problems Seizures: No Cardiology Problems Congestive Heart Failure: No Respiratory Problems Chronic Obstructive Pulmonary Disease (COPD): No Smoking: No Smoking Exposure: No Genital/Urinary Problems Renal Disease: No Reproductive Problems Previous Pregnancies: Yes Musculoskeletal Problems Arthritis: Yes (LEFT HIP) Fractures: Yes (KNEE) Endocrine Problems Diabetes Mellitus Type 1: No Diabetes Mellitus Type 2: No Other Problems Falls: No Blood Transfusions: No Anesthesia Reactions: No Chicken Pox: Yes Measles: No Mumps: No Cancer: No Surgical History Total Hip Replacement: Yes (2024) Total Knee Replacement: Yes (RIGHT 2012) Hysterectomy: Yes Subjective Visit Visit for: follow up visit and post op #3 (LT HIP REPLACEMENT ) Immunization / Flu Flu Vaccine in the Last 12 Months: No Flu Vaccine Exclusion Criteria: Refused by Patient History of Present Illness Chief complaint: Left hip pain Date of injury / onset of symptoms: 09/2022 Melissa is a pleasant 54-year-old female with a left greater than right hip pain. She is doing well status post left total hip replacement anterior approach. Personal History Red flag PMH: none Pain Pain level (0-10): 0 Pain duration: ON AND OFF Pain location: outside (lateral) Pain quality: aching Pain timing: increases with activity and stairs Associated signs & symptoms: none Ambulatory data Ambulatory device: none Treatments Number of previous injections: 0 Improvement with previous injections: No Number of Physical Therapy sessions: 8 Improvement with PT: Yes Improvement with NSAIDS: n/a Review of Systems Review of Systems: All systems negative unless otherwise noted in HPI.
== END 2025-02-03 08:25 | disposition home or self-care (01) ==
PROVIDERS: PCP Family Medicine; Referring Provider Family Medicine; Supervising Provider Orthopaedic Surgery Adult Reconstructive Orthopaedic Surgery; Visit Provider Orthopaedic Surgery Adult Reconstructive Orthopaedic Surgery
DX: M16.12 Unilateral primary osteoarthritis, left hip (principal); M25.552 Pain in left hip; Z96.642 Presence of left artificial hip joint
CPT/HCPCS: 99213; G0463

== ENCOUNTER 2025-02-10 14:00 | Outpatient (RCR) | payer BC, SELFPAY ==
--- NOTE | 2025-01-14 12:05 | PT.ODAYNRPT ---
PT Outpatient Daily Note OP Daily Note Outpatient Physical Therapy Treatment Date: 01/14/25 Subjective: Pt's hip was sore after last session. Pt is very tired from yesterday Objective: Please see flow chart for list of ther ex performed Assessment: tolerate exercises with minimal pain Plan: Continue with PT Length of Time (minutes) of Treatment: 30 Minutes Procedure Charges Therapeutic Exercise 30 minutes: Yes
--- NOTE | 2025-01-18 12:06 | PT.ODAYNRPT ---
PT Outpatient Daily Note OP Daily Note Outpatient Physical Therapy Treatment Date: 01/18/25 Visit Reasons: S/P LEFT TKA Subjective: Pt's hip very sore. Pt walked ~ 10 miles yesterday looking for her lost dog. Objective: Please see flow chart for list of ther ex performed Assessment: decrease exercise intensity today due to hip soreness from previous activities. Pt performed most supine exercises with good tolerance Plan: Continue with PT Length of Time (minutes) of Treatment: 30 Minutes Procedure Charges Therapeutic Exercise 30 minutes: Yes
--- NOTE | 2025-01-24 15:16 | PT.ODAYNRPT ---
PT Outpatient Daily Note OP Daily Note Outpatient Physical Therapy Treatment Date: 01/24/25 Visit Reasons: S/P LEFT TKA Subjective: Pt reports noticing she limps especially with initial standing up from sitting. Objective: Please see flow sheet for there ex list. Assessment: Progressed interventions, pt tolerated well. Pt educated on hip precautios due to post op timeline, avoid excessive hip extension. Plan: Continue with pOC. Length of Time (minutes) of Treatment: 30 Minutes Procedure Charges Therapeutic Exercise 30 minutes: Yes
--- NOTE | 2025-01-26 16:13 | PT.ODAYNRPT ---
PT Outpatient Daily Note OP Daily Note Outpatient Physical Therapy Treatment Date: 01/26/25 Visit Reasons: S/P LEFT TKA Subjective: Pt's hip is better and walk more with less limp. Objective: Please see flow chart for list of ther ex performed Assessment: decrease antalgic gait able to WB more with balance and closed chain exercises demonstrating hip stability Plan: Continue with PT Length of Time (minutes) of Treatment: 30 Minutes Procedure Charges Therapeutic Exercise 30 minutes: Yes
--- NOTE | 2025-02-01 15:18 | PT.ODAYNRPT ---
PT Outpatient Daily Note OP Daily Note Outpatient Physical Therapy Treatment Date: 02/01/25 Visit Reasons: S/P LEFT TKA Subjective: Pt reports L hip is doing better. Objective: Please see flow sheet for ther ex list. Assessment: Progression of interventions tolerated well. Plan: Continue with POC. Length of Time (minutes) of Treatment: 30 Minutes Procedure Charges Therapeutic Exercise 30 minutes: Yes
--- NOTE | 2025-02-10 14:56 | PT.ODAYNRPT ---
PT Outpatient Daily Note OP Daily Note Outpatient Physical Therapy Treatment Date: 02/10/25 Visit Reasons: S/P LEFT TKA Subjective: Pt's hip is better and more stable. Pt was able to ride her horse 2x Objective: Please see flow chart for list of ther ex performed Assessment: tolerate exercises with minimal pain; continues to improve with gait with more hip stability in stance Plan: Continue with PT Length of Time (minutes) of Treatment: 30 Minutes Procedure Charges Therapeutic Exercise 30 minutes: Yes
--- NOTE | 2025-02-14 13:29 | PT.ODAYNRPT ---
PT Outpatient Daily Note OP Daily Note Outpatient Physical Therapy Treatment Date: 02/03/25 Visit Reasons: S/P LEFT TKA Subjective: Pt's hip is better. Pt is walking more with less of a limp Objective: Please see flow chart for list of ther ex performed Assessment: tolerate exercises with minimal pain; improve hip stability in gait with more glute activation in stance noted Plan: Conitnue with PT Length of Time (minutes) of Treatment: 30 Minutes Procedure Charges Therapeutic Exercise 30 minutes: Yes
== END 2025-02-12 23:59 | disposition home or self-care (01) ==
LOC: CPTX 14:00
PROVIDERS: PCP Orthopaedic Surgery Adult Reconstructive Orthopaedic Surgery; Referring Provider Orthopaedic Surgery Adult Reconstructive Orthopaedic Surgery; Visit Provider Orthopaedic Surgery Adult Reconstructive Orthopaedic Surgery
DX: M25.552 Pain in left hip (principal); Z96.642 Presence of left artificial hip joint; R26.2 Difficulty in walking, not elsewhere classified
CPT/HCPCS: 97110

== ENCOUNTER 2025-02-22 14:00 | Outpatient (RCR) | payer BC, SELFPAY ==
--- NOTE | 2025-02-17 15:43 | PT.ODAYNRPT ---
PT Outpatient Daily Note OP Daily Note Outpatient Physical Therapy Treatment Date: 02/17/25 Visit Reasons: Left hip pain Subjective: Pt's hip is better, however, feeling super tired mentally. Pt [place] Objective: Please see flow chart for list of ther ex performed Assessment: continue to demonstrate improved L hip stability with gait and during exercises Plan: Continue with PT Length of Time (minutes) of Treatment: 30 Minutes Procedure Charges Therapeutic Exercise 30 minutes: Yes
--- NOTE | 2025-02-22 14:51 | PT.ODAYNRPT ---
PT Outpatient Daily Note OP Daily Note Outpatient Physical Therapy Treatment Date: 02/22/25 Visit Reasons: Left hip pain Subjective: Pt reports L hip is doing better but would liek ot be able to get on and off her horse saddle with less difficulty. Pt has been riding which is not painful. Objective: Please se flow sheet for ther ex list. Assessment: Progressing interventions to work on functional strength and working on hip flexor strength to work toward pt being able to get on/off horse saddle. Plan: Continue with POC. Length of Time (minutes) of Treatment: 30 Minutes Procedure Charges Therapeutic Exercise 30 minutes: Yes
--- NOTE | 2025-04-13 12:09 | PT.ODS1RPT ---
PT OP Progress/Discharge Note Date of Service: 04/13/25 Progress Note/DC Note Progress Note/Discharge Note: DC Note Patient Information Visit Reasons: Left hip pain Service Discharge Date: 04/13/25 Status Assessment: Pt has been seen for 11 visits (eval + 10 visits). Pt last treated on 02/22/25 and has not returned to therapy. Pt has been contact regarding follow up appt without success. At this time Pt will be d/c from care due to plan of care 04/06/25. Pt did not meet set goals in therapy; thank you for your referrals.
== END 2025-03-14 23:59 | disposition home or self-care (01) ==
LOC: CPTX 14:00
PROVIDERS: PCP Psychiatry & Neurology Neurology; Referring Provider Psychiatry & Neurology Neurology; Visit Provider Psychiatry & Neurology Neurology
DX: M25.552 Pain in left hip (principal); R26.2 Difficulty in walking, not elsewhere classified; Z96.642 Presence of left artificial hip joint
CPT/HCPCS: 97110

== ENCOUNTER 2025-06-07 08:06 | Outpatient (AMB) | payer BC, SELFPAY ==
[2025-06-07 08:20] VITALS: BP 124/86; PULSE 70; RESP 16; TEMP 36.5; O2SAT 97; BMI 22.9
--- NOTE | 2025-06-07 08:20 | PD.ORTHCLVIS ---
Vital signs 06/07/25 08:20 Height 1.63 m Height Method Measured Weight 61.008 kg Weight Measurement Method Standing Scale BMI 22.9 BP 124/86 H Blood Pressure Source Automatic Cuff Blood Pressure Location Left Upper Arm Position Sitting Respiration 16 Pulse 70 Pulse Source Monitor Temp 97.7 F Temp Source Temporal Artery Scan Pulse Oximetry (%) 97 Oxygen Delivery Method Room Air Med/Allergies Allergies & Medications Allergies No Known Allergies Allergy (Verified 06/07/25 08:21) Medication Reconciliation estradiol 0.0375 mg/24 hr semiweekly transdermal patch 0.0375 mg topical .2XWEEK 12/06/24 [History Confirmed 06/07/25] pregestorone 100 mg PO QDAY 12/06/24 [History Confirmed 06/07/25] testosterone cypionate 200 mg/mL intramuscular syringe 160 mg subcut .WEEKLY 12/06/24 [History Confirmed 06/07/25] acetaminophen 500 mg tablet (Acetaminophen Extra Strength) 1,000 mg (2 x 500 mg) PO Q6H PRN pain #90 tabs 12/08/24 [Rx Confirmed 06/07/25] aspirin 81 mg tablet,delayed release 81 mg PO BID #60 tabs 12/08/24 [Rx Confirmed 06/07/25] doxycycline hyclate 100 mg tablet 100 mg PO BID #14 tabs 12/08/24 [Rx Confirmed 06/07/25] gabapentin 300 mg capsule 300 mg PO .qhs #30 caps 12/08/24 [Rx Confirmed 06/07/25] oxycodone 5 mg tablet 5 mg PO Q6H PRN pain #28 tabs 12/08/24 [Rx Confirmed 06/07/25] sennosides 8.6 mg-docusate sodium 50 mg tablet (Senna-S) 1 tab-cap PO QDAY #30 tabs 12/08/24 [Rx Confirmed 06/07/25] hydrocodone 5 mg-acetaminophen 325 mg tablet 1 tab PO Q6H PRN pain #28 tabs 01/25/25 [Rx Confirmed 06/07/25] Exam Exam Patient is in no acute distress and is cooperative with the examination today. Breathing is nonlabored. In no respiratory distress. Patient has no paraspinal tenderness. Spinal deformity cannot be appreciated. The gait of the patient is nonantalgic Bilateral extremities were evaluated and demonstrates sensation intact to light touch. Palpable pedal pulses are present. No significant edema is present. Bilateral knees were examined and the patient has full strength and range of motion.. The right hip was examined. Patient was able to flex to 90 degrees, adduct to 30 degrees, abduct to 40 degrees, internally rotate to 20 degrees, and externally rotate to 20 degrees. Patient has a negative logroll. Stinchfield is negative. The patient is nontender diffusely to touch. Left hip incision is clean dry intact. Leg lengths are equal Left hip x-rays demonstrates a cementless total hip replacement in good alignment and position Assessment and Plan Problem List (1) Arthritis of left hip: Status: Acute Plan: Patient is a 54-year-old female with a left hip pain and left hip arthritis. She is doing well status post left totalHip replacement. She is 6 months status post total hip replacement and is doing well. We will see her for routine follow-up In approximately 1 year Office Procedures GNS Level of Care Nursing/Assessment Patient Status: Established Patient Nursing Assessment/Reassesment: Medication Reconciliation, Update PMH in EMR and Vital Signs Coordination of Care: Complex Care and Chronic Disease 1-5, Education Complex Pt/Fam, Consent,records obtained, informed consent, Results/Orders obtained and Staff clarify orders Established Patient Charge Established Patient Point Assignment: 95 Established Patient Point Charge: EP Level 3 (80-115) MA Intake Visit Data Collection New Patient or Established: Established Patient (seen at [facility] within 3 years) Reason for Visit:: FOLLOW UP HIP Seen by Clinical Staff ONLY (RN/MA): No [employer] Required: No PCP or OBGYN visit in last 3 months: Yes Hx Now: No Do You Feel Safe at Home: Yes Authorities Contacted: N/A Questionairres Past Medical History Past Medical History Have you ever been diagnosed with any of the following: Neurological Problems Seizures: No Cardiology Problems Congestive Heart Failure: No Respiratory Problems Chronic Obstructive Pulmonary Disease (COPD): No Smoking: No Smoking Exposure: No Genital/Urinary Problems Renal Disease: No Reproductive Problems Previous Pregnancies: Yes Musculoskeletal Problems Arthritis: Yes (LEFT HIP) Fractures: Yes (KNEE) Endocrine Problems Diabetes Mellitus Type 1: No Diabetes Mellitus Type 2: No Other Problems Falls: No Blood Transfusions: No Anesthesia Reactions: No Chicken Pox: Yes Measles: No Mumps: No Cancer: No Surgical History Total Hip Replacement: Yes (2024) Total Knee Replacement: Yes (RIGHT 2012) Hysterectomy: Yes Subjective Visit Visit for: follow up visit and hip Immunization / Flu Flu Vaccine in the Last 12 Months: No Flu Vaccine Exclusion Criteria: Refused by Patient History of Present Illness Chief complaint: FOLLOW UP HIP Date of injury / onset of symptoms: 09/2022 Melissa is a pleasant 54-year-old female with a left greater than right hip pain. She is doing well status post left total hip replacement anterior approach. Personal History Red flag PMH: none Pain Pain level (0-10): 0 Pain duration: ON AND OFF Pain location: outside (lateral) Pain quality: aching Pain timing: increases with activity and stairs Associated signs & symptoms: none Ambulatory data Ambulatory device: none Treatments Number of previous injections: 0 Improvement with previous injections: No Number of Physical Therapy sessions: 8 Improvement with PT: Yes Improvement with NSAIDS: n/a Review of Systems Review of Systems: All systems negative unless otherwise noted in HPI.
== END 2025-06-07 08:27 | disposition home or self-care (01) ==
LOC: HODSRG 08:06
PROVIDERS: PCP Psychiatry & Neurology Neurology; Referring Provider Psychiatry & Neurology Neurology; Supervising Provider Orthopaedic Surgery Adult Reconstructive Orthopaedic Surgery; Visit Provider Orthopaedic Surgery Adult Reconstructive Orthopaedic Surgery
DX: M16.12 Unilateral primary osteoarthritis, left hip (principal); M25.552 Pain in left hip; M25.551 Pain in right hip; Z96.642 Presence of left artificial hip joint
CPT/HCPCS: 99213; G0463